=== PATIENT | female | born 1985 | race American Indian/Alaskan Native ===

== ENCOUNTER 2020-02-02 20:02 | Emergency (ER) | payer OTHER ==
[2020-02-02] MEDS ORDERED: ASPIRIN 325 MG TAB PO ONE (20:27)
[2020-02-02 22:08] LABS: Blood Urea Nitrogen 13 mg/dL (7-17); Calcium 9.9 mg/dL (8.4-10.2); Hemolysis Index 48
[2020-02-02 22:09] LABS: BUN/Creatinine Ratio 19
[2020-02-02 22:11] LABS: Hematocrit 39.9 % (30.3-42.9); Hemoglobin 12.9 gm/dl (10.1-14.3); Mean Corpuscular HGB Conc 32 % (30-34); Mean Corpuscular Volume 94 fl (79-97); Platelet Count 273 K/mm3 (140-440); Red Blood Count 4.26 M/mm3 (3.65-5.03); Red Cell Distribution Width 13.1 % (13.2-15.2)
--- NOTE | 2020-02-02 22:59 | XRay Report ---
CHEST 2 VIEWS INDICATION: Chest Pain. COMPARISON: None FINDINGS: SUPPORT DEVICES: None. HEART: Within normal limits. LUNGS/PLEURA: No acute air space or interstitial disease. No pneumothorax. ADDITIONAL FINDINGS: None. IMPRESSION: 1. No acute findings. Signer Name: Sebastian Jarrett MD Signed: 02/02/2020 10:54 PM Workstation Name: [id number]
[2020-02-03] MEDS ORDERED: IBUPROFEN 400 MG TAB PO ONE (01:35)
[2020-02-03] MEDS ORDERED: ACETAMINOPHEN 325 MG TAB PO ONE (01:35)
[2020-02-03] MEDS ORDERED: FAMOTIDINE 20 MG TAB PO ONE (01:35)
[2020-02-03] MEDS ORDERED: SUCRALFATE 1 GM/10 ML ORAL LIQD PO ONE (01:35)
[2020-02-03 01:36] VITALS: BP 140/70
--- NOTE | 2020-02-03 01:36 | Emergency Department Report ---
ED General Adult HPI - General Chief complaint: Chest Pain Stated complaint: BACK,CHEST PAIN PUI?: No Time Seen by Provider: 02/03/20 01:24 Source: patient, RN notes reviewed Mode of arrival: Ambulatory Limitations: No Limitations - History of Present Illness Initial comments: The patient was evaluated in the emergency department for symptoms described in the history of present illness. He/she was evaluated in the context of the global COVID-19 pandemic, which necessitated consideration that the patient might be at risk for infection with the virus that causes COVID-19. Institutional protocols and algorithms that pertain to the evaluation of patients at risk for COVID-19 are in a state of rapid change based on informat ion released by regulatory bodies including the CDC and federal and state organizations. These policies and algorithms were followed during the patient's care in the emergency department. Please note that these policies, procedures and recommendations changed on a rapid basis. During the history and physical examination, I am chaperoned by nurse Elsa Pate Patient is a 35-year-old female. She is not known to myself previously. She states that she is not , has not delivered, given . She reports no DVT or pulmonary embolism risk factors. She presents to the ER with 2 complaints. Patient's first complaint is parathoracic back pain,/parascapular back pain, present for years. The pain is aching, and increases with palpation, range of motion, twisting in certain positions. Decreases with rest and a lidocaine patch that was given to her by her sister. Her next complaint is chest wall pain. This chest wall pain is present for a few days. It is occasionally on the center, left side, and right side. The chest wall pain does not radiate to the back, arms or neck. There is no vomiting, diaphoresis, exertional shortness of breath, leg pain, leg swelling, travel, surgery, oral contraceptive use. She denies focal extremity weakness/numbness. No family history of DVT, pulmonary embolism, or ischemic coronary artery disease that she is aware of. -: Gradual, days(s), year(s) Location: chest, back Radiation: non-radiation Quality: aching Consistency: intermittent Improves with: rest Worsens with: movement - Related Data Allergies Allergy/AdvReac Type Severity Reaction Status Date / Time clindamycin Allergy Hives Verified 02/02/20 20:27 ED Review of Systems ROS: Stated complaint: BACK,CHEST PAIN Other details as noted in HPI Constitutional: denies: fever Eyes: denies: vision change ENT: denies: epistaxis Respiratory: denies: cough Cardiovascular: chest pain Gastrointestinal: denies: abdominal pain Genitourinary: denies: dysuria Musculoskeletal: back pain Neurological: denies: weakness ED Past Medical Hx - Past Medical History Previous Medical History?: No - Surgical History Past Surgical History?: No - Social History Smoking Status: Never Smoker Substance Use Type: Marijuana ED Physical Exam - General Limitations: No Limitations General appearance: alert, in no apparent distress - Head Head exam: Present: atraumatic, normocephalic - Eye Eye exam: Present: normal appearance, EOMI. Absent: nystagmus - ENT ENT exam: Present: normal exam, normal orophraynx, mucous membranes moist, normal external ear exam - Neck Neck exam: Present: normal inspection, full ROM. Absent: tenderness, meningismus - Respiratory Respiratory exam: Present: normal lung sounds bilaterally, chest wall tenderness. Absent: respiratory distress, wheezes, rales, rhonchi, stridor, decreased breath sounds - Cardiovascular Cardiovascular Exam: Present: regular rate, normal rhythm, normal heart sounds. Absent: bradycardia, tachycardia, irregular rhythm, systolic murmur, diastolic murmur, rubs, gallop - GI/Abdominal GI/Abdominal exam: Present: soft, normal bowel sounds. Absent: distended, tenderness, guarding, rebound, rigid, pulsatile mass - Extremities Exam Extremities exam: Present: normal inspection, full ROM, other (2+ pulses noted in the bilateral upper and lower extremities. There is no palpable cord. negative Homans sign. Muscular compartments are soft. The pelvis is stable.). Absent: pedal edema, calf tenderness - Back Exam Back exam: Present: normal inspection, full ROM, paraspinal tenderness. Absent: tenderness, CVA tenderness (R), CVA tenderness (L), muscle spasm - Neurological Exam Neurological exam: Present: alert, oriented X3, normal gait, other (No facial droop. Tongue midline. Extraocular movements intact bilaterally. Facial sensation intact to light touch in V1, V2, V3 distribution bilaterally. 5 and a 5 strength in 4 extremities. Sensation intact to light touch in 4 extremities.). Absent: motor sensory deficit - Psychiatric Psychiatric exam: Present: normal affect, normal mood - Skin Skin exam: Present: warm, dry, intact, normal color. Absent: rash ED Course Vital Signs 02/02/20 02/03/20 02/03/20 20:24 01:34 01:44 Temperature 98.4 F 98.1 F Pulse Rate 81 67 Respiratory 18 18 18 Rate Blood Pressure 123/67 Blood Pressure 140/70 [Left] O2 Sat by Pulse 100 100 Oximetry ED Medical Decision Making - Lab Data Result diagrams: 02/02/20 21:00 02/02/20 21:00 Vital Signs 02/02/20 02/03/20 02/03/20 20:24 01:34 01:44 Temperature 98.4 F 98.1 F Pulse Rate 81 67 Respiratory 18 18 18 Rate Blood Pressure 123/67 Blood Pressure 140/70 [Left] O2 Sat by Pulse 100 100 Oximetry Lab Results 02/02/20 02/02/20 02/02/20 Range/Units 21:00 21:00 21:00 WBC 10.9 (4.5-11.0) K/mm3 RBC 4.26 (3.65-5.03) M/mm3 Hgb 12.9 (10.1-14.3) gm/dl Hct 39.9 (30.3-42.9) % MCV 94 (79-97) fl MCH 30 (28-32) pg MCHC 32 (30-34) % RDW 13.1 L (13.2-15.2) % Plt Count 273 (140-440) K/mm3 Lymph % (Auto) Contract Engineer [place] % (Auto) Contract Engineer Eos % (Auto) Contract Engineer Baso % (Auto) Contract Engineer Lymph # (Auto) Contract Engineer [place] # (Auto) Contract Engineer Eos # (Auto) Contract Engineer Baso # (Auto) Contract Engineer Seg Neutrophils % Contract Engineer Seg Neutrophils # Contract Engineer Sodium 132 L (137-145) mmol/L Potassium 3.6 (3.6-5.0) mmol/L Chloride 100.4 (98-107) mmol/L Carbon Dioxide 19 L (22-30) mmol/L Anion Gap 16 mmol/L BUN 13 (7-17) mg/dL Creatinine 0.7 (0.6-1.2) mg/dL Estimated GFR > 60 ml/min BUN/Creatinine Ratio 19 % Glucose 83 (65-100) mg/dL Calcium 9.9 (8.4-10.2) mg/dL Troponin T < 0.010 (0.00-0.029) ng/mL HCG, Qual Negative (Negative) 02/03/20 Range/Units 00:05 WBC (4.5-11.0) K/mm3 RBC (3.65-5.03) M/mm3 Hgb (10.1-14.3) gm/dl Hct (30.3-42.9) % MCV (79-97) fl MCH (28-32) pg MCHC (30-34) % RDW (13.2-15.2) % Plt Count (140-440) K/mm3 Lymph % (Auto) [place] % (Auto) Eos % (Auto) Baso % (Auto) Lymph # (Auto) [place] # (Auto) Eos # (Auto) Baso # (Auto) Seg Neutrophils % Seg Neutrophils # Sodium (137-145) mmol/L Potassium (3.6-5.0) mmol/L Chloride (98-107) mmol/L Carbon Dioxide (22-30) mmol/L Anion Gap mmol/L BUN (7-17) mg/dL Creatinine (0.6-1.2) mg/dL Estimated GFR ml/min BUN/Creatinine Ratio % Glucose (65-100) mg/dL Calcium (8.4-10.2) mg/dL Troponin T < 0.010 (0.00-0.029) ng/mL HCG, Qual (Negative) - EKG Data -: EKG Interpreted by Ct EKG shows normal: sinus rhythm Rate: normal - EKG Data When compared to previous EKG there are: previous EKG unavailable 02/03/20 02:29 EKG #1 shows a normal sinus rhythm, 74 bpm, normal axis, normal intervals, unremarkable EKG, not a STEMI. EKG #2 is unchanged from prior. - Radiology Data Radiology results: pending, report reviewed, image reviewed Print Report Referring Physician: ED DOC Patient Name: AMBROSIO STRONG Date of : 1985 Sex: Female Report Date: 2020-02-02 Report Status: Finalized Findings [facility] [address] [place] [address] XRay Report Signed Patient: AMBROSIO STRONG MR#: [id number] : 1985 Acct:[id number] Age/Sex: 34 / F ADM Date: 02/02/20 Loc: ED Attending Dr: Ordering Physician: NADI COBURN MD Date of Service: 02/02/20 Procedure(s): XR chest routine 2V Accession Number(s): [id number] cc: ANDI COBURN MD Fluoro Time In Minutes: CHEST 2 VIEWS INDICATION: Chest Pain. COMPARISON: None FINDINGS: SUPPORT DEVICES: None. HEART: Within normal limits. LUNGS/PLEURA: No acute air space or interstitial disease. No pneumothorax. ADDITIONAL FINDINGS: None. IMPRESSION: 1. No acute findings. Signer Name: Sebastian Jarrett MD Signed: 02/02/2020 10:54 PM Workstation Name: [id number] Transcribed By: JW Dictated By: Sebastian Jarrett MD Electronically Authenticated By: Sebastian Jarrett MD Signed Date/Time: 02/02/202253 DD/ 53 TD/TT: - Medical Decision Making Differential diagnosis, including but not limited to: Costochondritis, musculoskeletal back pain Assessment and plan: 35-year-old female, who was afebrile, with reassuring vital signs, PERC negative, not tachycardic, tachypneic or hypoxic, low risk by Wells criteria for pulmonary embolism, low risk for major adverse cardiac event as per heart score, who has not delivered or given within the past 6 weeks, with reproducible parathoracic back pain, and chest wall pain. On my assessment, playing with her cell phone, does not appear to be in any acute distress, and is resting comfortably. Symptoms treated supportively and appropriately. Discussed lifestyle modification with patient. Discussed need to follow-up as an outpatient. Patient does not appear to have an emergent medical condition at this time. Symptoms present for years and days, therefore, myocardial infarction may be ruled out with 1 set of troponins/cardiac enzymes as per the [employer] clinical policy. Critical care attestation.: If time is entered above; I have spent that time in minutes in the direct care of this critically ill patient, excluding procedure time. ED Disposition Clinical Impression: Chest wall pain, Upper back pain Disposition: TO HOME OR SELFCARE Is pt being admited?: No Does the pt Need Aspirin: No Condition: Stable Instructions: Chest Pain (ED) Additional Instructions: Rest, avoid heavy lifting, and avoid strenuous physical activities. Patient may alternate [id number] Tylenol, 650 mg by mouth, [id number], every 4- 6 hours as needed for pain, maximum daily dose to not exceed 3 g per 24 hours, with ibuprofen, 400 mg by mouth, with food, every 6 hours as needed for pain. Patient may also alternate ice packs, heat packs as needed for physical discomfort. Recommend follow-up with an outpatient primary care doctor or chisel worker withi n the next 3 to 5 days. Patient may also benefit from outpatient complementary therapies such as ma ssage, acupuncture, chiropractic, or physical therapy to assist with her musculoskeletal pain. Would defer to her primary care doctor to set this up, however, patient may reach out to some of these complementary therapist on her own, if her insurance so permits. Referrals: RICKIE DUNHAM MD [Staff Physician] - 3-5 Days MIKE WHITNEY MD [Staff Physician] - 3-5 Days Forms: Work/School Release Form(ED) Heart Score - HEART Score History: Slightly suspicious EKG: Normal Age: < 45 Risk factors: No known risk factors Troponin: < normal limit HEART Score: 0 - Critical Actions Critical Actions: 0-3 pts:0.9-1.7%risk of adverse cardiac event.Candidate for discharge
== END 2020-02-03 02:35 | disposition home or self-care (01) ==
LOC: ED 20:02
DX: R07.89 Other chest pain (principal); M54.6 Pain in thoracic spine
CPT/HCPCS: 36415; 71046; 80048; 84484; 84703; 85025; 93005